=== PATIENT | female | born 1995 | race Caucasian/White ===

== ENCOUNTER 2017-04-27 22:31 | Emergency (ER) | payer BC, OTHER ==
[~2017-04-27] VITALS: Ht 149.9 cm; Wt 49.0 kg
[2017-04-27] MEDS ORDERED: AMOX500C2 (22:56)
--- NOTE | 2017-04-27 23:22 | ED EENT ---
History of Present Illness General Chief Complaint: Oral/Throat Problems Stated Complaint: STREP/VOMITING Nursing Triage Note: pt reports started having sore throat on thursday. was diagnosed with strep this am by [facility]. pt reports she started vomiting this afternoon. pt reports she has been unable to keep her antibiotics down. Source: patient Exam Limitations: no limitations History of Present Illness Date Seen by Provider: Apr 27, 2017 Time Seen by Provider: 23:22 Allergies and Home Medications Allergies Coded Allergies: No Known Drug Allergies (Unverified , 04/27/17) Home Medications Amoxicillin 500 Mg Capsule, (Reported) Ondansetron 8 Mg Tab.rapdis, 8 MG PO Q6H PRN for NAUSEA/VOMITING-1ST LINE, #10 Ref 0 Prescribed by: SHANTEL ARNOLD on 04/27/17 5241 Past Swetupd-Rxbabt-Mrcnis Hx Patient Social History Alcohol Use: Denies Use Recreational Drug Use: No Smoking Status: Never a Smoker Recent Foreign Travel: No Contact w/Someone Who Travel: No Recent Infectious Disease Expo: No Recent Hopitalizations: No Physical Abuse: No Sexual Abuse: No Mistreated: No Fear: No Seasonal Allergies Seasonal Allergies: No Surgeries History of Surgeries: Yes Surgeries: Appendectomy, Gallbladder Respiratory History of Respiratory Disorde: No Cardiovascular History of Cardiac Disorders: No Neurological History of Neurological Disord: No Genitourinary History of Genitourinary Disor: No Gastrointestinal History of Gastrointestinal Di: No Musculoskeletal History of Musculoskeletal Dis: No Endocrine History of Endocrine Disorders: No HEENT History of HEENT Disorders: No Cancer History of Cancer: No Psychosocial History of Psychiatric Problem: No Suicide Risk Score: 0 Integumentary History of Skin or Integumenta: No Blood Transfusions History of Blood Disorders: No Physical Exam Vital Signs Vital Signs - First Documented 04/27/17 22:49 Temp 97.9 Pulse 122 Resp 20 B/P (MAP) 99/69 (79) Pulse Ox 97 Progress/Results/Core Measures Results/Orders My Orders Orders - SHANTEL ARNOLD Ibuprofen Tablet (Motrin Tablet) (04/27/17 23:34) Ceftriaxone Injection (Rocephin Injectio (04/27/17 23:45) Lidocaine 1% Injection (Xylocaine 1% Inj (04/27/17 23:45) Rx-Ondansetron Po (Rx-Zofran Po) (04/27/17 23:34) Vital Signs/I&O Vital Sign - Last 12Hours 04/27/17 22:49 Temp 97.9 Pulse 122 Resp 20 B/P (MAP) 99/69 (79) Pulse Ox 97 Blood Pressure Mean: 79 Departure Impression Impression: Primary Impression: Nausea and vomiting Additional Impression: Streptococcal tonsillitis Disposition: 01 HOME, SELF-CARE Condition: Improved Departure-Patient Inst. Decision time for Depature: 23:34 Referrals: NO,LOCAL PHYSICIAN (PCP/Family) Primary Care Physician Patient Instructions: Strep Throat (DC) Add. Discharge Instructions: All discharge instructions reviewed with patient and/or family. Voiced understanding. Medications as instructed. Increase the amoxicillin to 1000 mg by mouth twice daily for 10 days. Tylenol Extra Strength 1000 mg by mouth every 6 hours as needed for fever or pain. Ibuprofen 600 mg by mouth every 6-8 hours as needed for pain or fever. Push fluids. Throat lozenges and sprays [id number] as needed for throat pain. Drink plenty of fluids. Rest. Follow-up with your family practitioner for recheck as an outpatient if no improvement in symptoms. Return to the emergency department for worsened symptoms or any other concerns. Scripts Amoxicillin (Amoxicillin) 500 Mg Capsule 1000 MG PO BID, #20 CAP 0 Refills Prov: SHANTEL ARNOLD 04/27/17 Ondansetron (Ondansetron Odt) 8 Mg Tab.rapdis 8 MG PO Q6H Y for NAUSEA/VOMITING-1ST LINE, #10 TAB 0 Refills Prov: SHANTEL ARNOLD 04/27/17 Work/School Note: Work Release Form Date Seen in the Emergency Department: Apr 27, 2017 Return to Work: Apr 29, 2017 Restrictions: Return-No Fever (24hrs), Return-No Vomiting(24hrs) SHANTEL ARNOLD Apr 27, 2017 23:22
[2017-04-27] MEDS ORDERED: RX-ONDANSETRON 4 MG ODT (ZOFRAN) PPK #4 PO STA (23:34)
[2017-04-27] MEDS ORDERED: IBUPROFEN 800 MG (MOTRIN) TAB PO STA (23:34)
[2017-04-27] MEDS ORDERED: ONDA8TAB13 PO (23:37)
[2017-04-27] MEDS ORDERED: LIDOCAINE 1% INJ 20 ML (XYLOCAINE) VIAL INJ ONE (23:45)
[2017-04-27] MEDS ORDERED: cefTRIAXone 1 GM (ROCEPHIN) VIAL IM ONE (23:45)
[2017-04-27] MEDS ORDERED: AMOX500C2 PO (23:46)
[2017-04-27] MEDS ORDERED: LIDOCAINE 1% INJ 50 ML (XYLOCAINE) VIAL ONE (23:46)
[2017-04-28 00:05] VITALS: BP 102/65
--- OUTSIDE RECORDS SUMMARY | 2017-04-30 13:06 | XMS REPORT ---
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 Info Not Available Non Drug Allergy Problems Problem Type Condition Code Onset Dates Condition Status Assessment Encounter for pre-employment examination Z02.1 Active Assessment Fever, unspecified fever cause R50.9 Active Medications Medication Code System Code Instructions Start Date End Date Status Dosage Tylenol [facility] [address]-87 325 MG Orally every 6 hrs 2 tablets as needed Benadryl Allergy [facility] [address]-17 25 MG Orally every 6 hrs 1 tablet as needed Acid Fitting Room Associate [facility] [address]-26 75 MG Orally Twice a day 1 tablet as needed Procedures Procedure Coding System Code Date Office Visit, Est Pt., Level 3 CPT-4 57286 Oct 31, 2015 DRUG SCREEN NON TLC DEVICES CPT-4 80882 Oct 31, 2015 URINALYSIS, AUTO, W/O SCOPE CPT-4 70219 Oct 31, 2015 TB INTRADERMAL TEST CPT-4 31532 Oct 31, 2015 Vital Signs Date/Time: Oct 31, 2015 Cardiac Monitoring Heart Rate 108 bpm Weight 104.4 lbs Height 59 in BMI 21.08 Index Blood Pressure Diastolic 70 mmHg Blood Pressure Systolic 110 mmHg Results No Known Results Summary Purpose [employer] Submission
--- OUTSIDE RECORDS SUMMARY | 2017-04-30 13:06 | XMS REPORT ---
Author Author HANNA MILLS Organization [employer] Address Unknown Phone Unavailable Care Team Providers Care Telescope Maintenance Name Role Phone HANNA MILLS Unavailable Allergies No Known Allergies Problems Problem Type Condition Code Onset Dates Condition Status Assessment Encounter for immunization Z23 Active Medications No Known Medications Procedures Procedure Coding System Code Date SINGLE IMMUNIZATION ADMIN CPT-4 65923 Dec 27, 2015 FLUARIX QUAD P-FREE 3 AND UP .50 2015 CPT-4 99610 Dec 27, 2015 Results No Known Results Immunizations Vaccine Administration Date FLUARIX QUAD P-FREE 3 AND UP .50 2015Dec 27, 2015 Summary Purpose [employer] Submission
== END 2017-04-28 00:04 | disposition home or self-care (01) ==
LOC: ER 22:34
DX: J03.00 Acute streptococcal tonsillitis, unspecified (principal); Z90.49 Acquired absence of other specified parts of digestive tract
CPT/HCPCS: 96372; 99284